=== PATIENT | male | born 1980 | race Two or more races ===

== ENCOUNTER 2021-01-16 15:31 | Inpatient (IN) | payer MEDICAID ==
[~2021-01-16] VITALS: Ht 162.6 cm; Wt 71.7 kg
[2021-01-16 15:56] LABS: EOSINOPHILS % (AUTO) 0.1 % (0.0-6.0); HEMOGLOBIN 12.1 g/dL (13.5-17.5); LYMPHOCYTES # (AUTO) 0.8 /CMM (0.8-4.8)
[2021-01-16 15:58] LABS: BASOPHILS % (AUTO) 0.5 % (0.0-2.0); HEMATOCRIT 34 % (39-51); LYMPHOCYTES % (AUTO) 8.1 % (20.0-44.0); MEAN CORPUSCULAR HGB CONC 35 g/dl (31.0-36.0); MEAN CORPUSCULAR VOLUME 89 fL (80-96); MONOCYTES # (AUTO) 0.9 /CMM (0.1-1.30); MONOCYTES % (AUTO) 9.6 % (2.0-12.0); NEUTROPHILS % (AUTO) 81.7 % (43.0-81.0); PLATELET COUNT (AUTO) 57 /CMM (150-450); RED BLOOD CELL COUNT(AUTO) 3.86 MIL/uL (4.5-6.0); WHITE BLOOD COUNT (AUTO) 9.8 K/uL (4.3-11.0)
[2021-01-16 16:10] LABS: ACETAMINOPHEN < 10 ug/ml (10-30); ALANINE AMINOTRANSFERASE 144 U/L (12-78); ALBUMIN 2.9 g/dL (3.4-5.0); ALCOHOL, BLOOD 546 mg/dL (0-0); ALKALINE PHOSPHATASE 160 U/L (46-116); ASPARTATE AMINOTRANSFERASE 327 U/L (15-37); BILIRUBIN,DIRECT 0.7 mg/dL (0.0-0.2); BILIRUBIN,TOTAL 1.3 mg/dL (0.2-1.0); CALCIUM, SERUM 7.4 mg/dL (8.5-10.1); CARBON DIOXIDE 21 mmol/L (21-32); CHLORIDE 90 mmol/L (98-107); GLUCOSE 158 mg/dL (74-106); POTASSIUM 3.4 mmol/L (3.5-5.1); SODIUM SERUM 130 mmol/L (136-145); UREA NITROGEN, BLOOD 13 mg/dL (7-18)
[2021-01-16 17:00] LABS: BAND % (MANUAL) 5 % (0.0-5.0); LYMPHOCYTES % (MANUAL) 8 % (16-48); MONOCYTES % (MANUAL) 7 % (0-11.0); NEUTROPHILS % (MANUAL) 80 (42-76)
[2021-01-16] MEDS ORDERED: POTASSIUM CL. PREMIX PERIPHER. 100 ML ONE (17:29)
[2021-01-16] MEDS ORDERED: LEVETIRACETAM (500MG) 500 MG in IV NS 0.9% 100 ML IV SCH (17:30)
[2021-01-16] MEDS ORDERED: IV NS 0.9% 250 ML IV ONE ×2 (17:37→19:39)
[2021-01-16] MEDS ORDERED: IOHEXOL-350 100 ML VIAL IV ONE (17:37)
[2021-01-16] MEDS: POTASSIUM CL. PREMIX PERIPHER. 50 ML IV SCH ×2 (17:38→18:45)
[2021-01-16] MEDS ORDERED: IOHEXOL-300 100 ML VIAL IV ONE (19:39)
[2021-01-16 21:23] VITALS: BP 106/57
[2021-01-16 21:30] VITALS: BP 106/57
[2021-01-16] MEDS ORDERED: IV NS 0.9% 1,000 ML IV ONE ×2 (21:30)
[2021-01-16] MEDS ORDERED: MAGNESIUM HYDROXIDE 30 ML UDC PO PRN (21:30)
[2021-01-16] MEDS ORDERED: MORPHINE SULFATE INJ 2 MG/ML DISP.SYRIN IV PRN (21:30)
[2021-01-16 22:00] VITALS: BP 115/65
[2021-01-16 23:00] VITALS: BP 102/54
[2021-01-17] VITALS (26 sets, daily range): BP systolic 88–141; BP diastolic 43–77
[2021-01-17] MEDS: IV NS 0.9% 1,000 ML IV PRN ×2 (00:13→10:25)
[2021-01-17] MEDS: ONDANSETRON HCL/PF 4 MG/2 ML VIAL IVP PRN ×2 (01:04→10:53)
[2021-01-17] MEDS: MAG HYDROX/AL HYDROX/SIMETH 30 ML UDC PO PRN ×2 (04:46→13:32)
[2021-01-17 04:59] LABS: BASOPHILS % (AUTO) 0.5 % (0.0-2.0); EOSINOPHILS % (AUTO) 0.2 % (0.0-6.0); HEMATOCRIT 29 % (39-51); LYMPHOCYTES # (AUTO) 0.7 /CMM (0.8-4.8); LYMPHOCYTES % (AUTO) 9.3 % (20.0-44.0); MEAN CORPUSCULAR HGB CONC 34 g/dl (31.0-36.0); MEAN CORPUSCULAR VOLUME 91 fL (80-96); MONOCYTES # (AUTO) 0.7 /CMM (0.1-1.30); MONOCYTES % (AUTO) 9.1 % (2.0-12.0); NEUTROPHILS # (AUTO) 5.9 /CMM (1.8-8.9); NEUTROPHILS % (AUTO) 80.9 % (43.0-81.0); RED BLOOD CELL COUNT(AUTO) 3.19 MIL/uL (4.5-6.0); WHITE BLOOD COUNT (AUTO) 7.3 K/uL (4.3-11.0)
[2021-01-17 05:00] LABS: PLATELET COUNT (AUTO) 34 /CMM (150-450)
[2021-01-17 05:26] LABS: ALBUMIN 2.4 g/dL (3.4-5.0); BILIRUBIN,DIRECT 0.4 mg/dL (0.0-0.2); BILIRUBIN,TOTAL 0.9 mg/dL (0.2-1.0); CALCIUM, SERUM 7.3 mg/dL (8.5-10.1); CREATININE 0.6 mg/dL (0.6-1.3); MAGNESIUM 1.6 mg/dL (1.8-2.4); POTASSIUM 3.2 mmol/L (3.5-5.1); TOTAL PROTEIN, SERUM 5.1 g/dL (6.4-8.2)
[2021-01-17] MEDS: LORAZEPAM INJ 2 MG/ML VIAL IV PRN ×2 (05:51→17:13)
[2021-01-17] MEDS ORDERED: METOCLOPRAMIDE HCL 10 MG/2 ML VIAL IV SCH (06:00)
[2021-01-17] MEDS ORDERED: PANTOPRAZOLE 40 MG VIAL IV SCH (06:00)
[2021-01-17] MEDS ORDERED: LEVETIRACETAM (500MG) 500 MG/5 ML VIAL IV ONE (06:08)
[2021-01-17] MEDS: LEVETIRACETAM (500MG) 500 MG in IV NS 0.9% 100 ML IV SCH ×2 (06:14→17:13)
[2021-01-17 08:19] LABS: BAND % (MANUAL) 3 % (0.0-5.0); EOSINOPHILS % (MANUAL) 1 % (0-4); LYMPHOCYTES % (MANUAL) 6 % (16-48); MONOCYTES % (MANUAL) 5 % (0-11.0); NEUTROPHILS % (MANUAL) 85 (42-76)
[2021-01-17 08:28] LABS: ALCOHOL, BLOOD 254 mg/dL (0-0)
[2021-01-17 08:51] LABS: CREATINE KINASE, TOTAL 1141 U/L (39-308)
[2021-01-17] MEDS: Magnesium 1GM/D5W 100ML PREMIX 100 ML IV SCH ×2 (11:40→12:42)
[2021-01-17] MEDS: POTASSIUM CHLORIDE 20 MEQ TAB.PRT.SR PO SCH ×2 (11:41→12:42)
[2021-01-18] VITALS (15 sets, daily range): BP systolic 114–139; BP diastolic 59–82
[2021-01-18] MEDS: LORAZEPAM INJ 2 MG/ML VIAL IV PRN ×3 (00:22→19:24)
[2021-01-18 04:47] LABS: CREATININE 0.6 mg/dL (0.6-1.3); MAGNESIUM 2.1 mg/dL (1.8-2.4); POTASSIUM 2.9 mmol/L (3.5-5.1)
[2021-01-18] MEDS: IV NS 0.9% 1,000 ML IV PRN ×2 (04:56→15:18)
[2021-01-18] MEDS: LEVETIRACETAM (500MG) 500 MG in IV NS 0.9% 100 ML IV SCH ×2 (05:54→19:35)
[2021-01-18] MEDS ORDERED: POTASSIUM CHLORIDE 20 MEQ TAB.PRT.SR PO ONE (08:00)
[2021-01-18] MEDS: POTASSIUM CL. PREMIX PERIPHER. 50 ML IV SCH ×4 (08:01→10:43)
[2021-01-18] MEDS: FAMOTIDINE (20 MG) 20 MG TABLET PO SCH (09:33)
[2021-01-18] MEDS: ACETAMINOPHEN 325 MG TABLET PO PRN (11:12)
[2021-01-18] MEDS ORDERED: DILTIAZEM HCL 50 MG IV IV PRN (18:00)
[2021-01-18] MEDS ORDERED: DILTIAZEM HCL 25 MG IV IV PRN (18:30)
[2021-01-18] MEDS ORDERED: DILTIAZEM HCL 25 MG IV IV ONE (21:00)
[2021-01-19] VITALS: BP 111/69
[2021-01-19] MEDS: LORAZEPAM INJ 2 MG/ML VIAL IV PRN ×2 (00:05→08:46)
[2021-01-19] MEDS: IV NS 0.9% 1,000 ML IV PRN ×2 (03:59→18:57)
[2021-01-19 04:00] VITALS: BP 110/66
[2021-01-19] MEDS: ACETAMINOPHEN 325 MG TABLET PO PRN ×3 (04:07→20:13)
[2021-01-19 06:38] LABS: BASOPHILS % (AUTO) 0.2 % (0.0-2.0); EOSINOPHILS % (AUTO) 0.4 % (0.0-6.0); HEMATOCRIT 28 % (39-51); HEMOGLOBIN 9.8 g/dL (13.5-17.5); LYMPHOCYTES # (AUTO) 0.3 /CMM (0.8-4.8); LYMPHOCYTES % (AUTO) 3.5 % (20.0-44.0); MEAN CORPUSCULAR HGB CONC 35 g/dl (31.0-36.0); MEAN CORPUSCULAR VOLUME 91 fL (80-96); MONOCYTES # (AUTO) 0.4 /CMM (0.1-1.30); NEUTROPHILS # (AUTO) 7.9 /CMM (1.8-8.9); NEUTROPHILS % (AUTO) 90.9 % (43.0-81.0); RED BLOOD CELL COUNT(AUTO) 3.07 MIL/uL (4.5-6.0); WHITE BLOOD COUNT (AUTO) 8.7 K/uL (4.3-11.0)
[2021-01-19 06:49] LABS: PLATELET COUNT (AUTO) 43 /CMM (150-450)
[2021-01-19 07:20] LABS: ALBUMIN 2.6 g/dL (3.4-5.0); BILIRUBIN,DIRECT 0.3 mg/dL (0.0-0.2); BILIRUBIN,TOTAL 1.1 mg/dL (0.2-1.0); CALCIUM, SERUM 8.7 mg/dL (8.5-10.1); CREATININE 0.5 mg/dL (0.6-1.3); MAGNESIUM 1.5 mg/dL (1.8-2.4); POTASSIUM 3.2 mmol/L (3.5-5.1); TOTAL PROTEIN, SERUM 5.6 g/dL (6.4-8.2)
[2021-01-19 08:00] VITALS: BP 111/73
[2021-01-19] MEDS: LEVETIRACETAM (500MG) 500 MG in IV NS 0.9% 100 ML IV SCH ×2 (08:42→20:13)
[2021-01-19] MEDS: FAMOTIDINE (20 MG) 20 MG TABLET PO SCH (08:42)
[2021-01-19] MEDS ORDERED: NEUTRA PHOS 1 POWD.PACKET PO ONE (10:30)
[2021-01-19] MEDS: Magnesium 1GM/D5W 100ML PREMIX 100 ML IV SCH ×2 (11:12→12:06)
[2021-01-19 12:00] VITALS: BP 110/64
[2021-01-19] MEDS: POTASSIUM CHLORIDE 20 MEQ TAB.PRT.SR PO SCH (12:21)
[2021-01-19 16:00] VITALS: BP 108/67
[2021-01-19 20:00] VITALS: BP 127/52
[2021-01-20] VITALS: BP 114/61
[2021-01-20] MEDS: DILTIAZEM HCL 25 MG IV IV PRN ×3 (00:33→21:28)
[2021-01-20] MEDS: ONDANSETRON HCL/PF 4 MG/2 ML VIAL IVP PRN (02:57)
[2021-01-20 04:00] VITALS: BP 140/71
[2021-01-20] MEDS: ACETAMINOPHEN 325 MG TABLET PO PRN ×4 (04:14→21:21)
[2021-01-20] MEDS ORDERED: CEFTRIAXONE 1 G VIAL ONE (04:34)
[2021-01-20] MEDS: IV NS 0.9% 1,000 ML IV PRN (04:40)
[2021-01-20] MEDS: CEFTRIAXONE 1 G in IV D5W 50 ML IV SCH (04:40)
[2021-01-20 06:50] LABS: CREATININE 0.6 mg/dL (0.6-1.3); MAGNESIUM 1.7 mg/dL (1.8-2.4); PHOSPHORUS 2.5 mg/dL (2.5-4.9); POTASSIUM 3.4 mmol/L (3.5-5.1)
[2021-01-20 07:15] LABS: BASOPHILS % (AUTO) 0.2 % (0.0-2.0); EOSINOPHILS % (AUTO) 0.1 % (0.0-6.0); HEMATOCRIT 30 % (39-51); HEMOGLOBIN 10.3 g/dL (13.5-17.5); LYMPHOCYTES # (AUTO) 0.4 /CMM (0.8-4.8); LYMPHOCYTES % (AUTO) 4.2 % (20.0-44.0); MEAN CORPUSCULAR HGB CONC 34 g/dl (31.0-36.0); MEAN CORPUSCULAR VOLUME 93 fL (80-96); MONOCYTES # (AUTO) 0.8 /CMM (0.1-1.30); MONOCYTES % (AUTO) 8.7 % (2.0-12.0); NEUTROPHILS # (AUTO) 8.4 /CMM (1.8-8.9); NEUTROPHILS % (AUTO) 86.8 % (43.0-81.0); PLATELET COUNT (AUTO) 68 /CMM (150-450); RED BLOOD CELL COUNT(AUTO) 3.28 MIL/uL (4.5-6.0); WHITE BLOOD COUNT (AUTO) 9.6 K/uL (4.3-11.0)
[2021-01-20] MEDS: LEVETIRACETAM (500MG) 500 MG in IV NS 0.9% 100 ML IV SCH (08:21)
[2021-01-20] MEDS: FAMOTIDINE (20 MG) 20 MG TABLET PO SCH (08:21)
[2021-01-20 08:45] VITALS: BP 110/70
[2021-01-20] MEDS ORDERED: VANCOMYCIN 1.25 GM in IV D5W 250 ML IV ONE (09:00)
[2021-01-20] MEDS: Magnesium 1GM/D5W 100ML PREMIX 100 ML IV SCH ×2 (10:24→11:40)
[2021-01-20] MEDS ORDERED: POTASSIUM CHLORIDE 20 MEQ TAB.PRT.SR PO SCH (10:30)
[2021-01-20] MEDS: LORAZEPAM INJ 2 MG/ML VIAL IV PRN ×3 (11:40→22:38)
[2021-01-20 13:14] VITALS: BP 98/59
[2021-01-20] MEDS: VANCOMYCIN 1 GM in IV D5W 250 ML IV SCH (16:07)
[2021-01-20 17:35] VITALS: BP 102/64
[2021-01-20 20:00] VITALS: BP 101/63
[2021-01-20] MEDS: LEVETIRACETAM (250 MG) 250 MG TABLET PO SCH (20:16)
[2021-01-20] MEDS: CHLORDIAZEPOXIDE HCL 25 MG CAPSULE PO SCH (22:38)
[2021-01-21] VITALS: BP 97/54
[2021-01-21] MEDS ORDERED: IV NS 0.9% 500 ML IV ONE ×2 (01:00→03:00)
[2021-01-21] MEDS: VANCOMYCIN 1 GM in IV D5W 250 ML IV SCH ×2 (01:42→09:23)
[2021-01-21] MEDS: IV NS 0.9% 1,000 ML IV PRN ×3 (03:51→21:34)
[2021-01-21 04:00] VITALS: BP 95/56
[2021-01-21] MEDS: CEFTRIAXONE 1 G in IV D5W 50 ML IV SCH (04:34)
[2021-01-21] MEDS: ACETAMINOPHEN 325 MG TABLET PO PRN ×3 (04:39→18:55)
[2021-01-21] MEDS: LORAZEPAM INJ 2 MG/ML VIAL IV PRN ×2 (04:39→09:44)
[2021-01-21 06:49] LABS: BASOPHILS % (AUTO) 0.4 % (0.0-2.0); EOSINOPHILS % (AUTO) 0.3 % (0.0-6.0); HEMATOCRIT 29 % (39-51); HEMOGLOBIN 9.4 g/dL (13.5-17.5); LYMPHOCYTES # (AUTO) 0.4 /CMM (0.8-4.8); LYMPHOCYTES % (AUTO) 5.9 % (20.0-44.0); MEAN CORPUSCULAR HGB CONC 33 g/dl (31.0-36.0); MEAN CORPUSCULAR VOLUME 98 fL (80-96); MONOCYTES # (AUTO) 1.3 /CMM (0.1-1.30); MONOCYTES % (AUTO) 22.3 % (2.0-12.0); NEUTROPHILS # (AUTO) 4.2 /CMM (1.8-8.9); NEUTROPHILS % (AUTO) 71.1 % (43.0-81.0); PLATELET COUNT (AUTO) 77 /CMM (150-450); RED BLOOD CELL COUNT(AUTO) 2.95 MIL/uL (4.5-6.0)
[2021-01-21 07:42] LABS: CALCIUM, SERUM 7.9 mg/dL (8.5-10.1); CREATININE 0.7 mg/dL (0.6-1.3); POTASSIUM 3.3 mmol/L (3.5-5.1)
[2021-01-21 08:00] VITALS: BP 93/56
[2021-01-21 08:18] LABS: BAND % (MANUAL) 6 % (0.0-5.0); LYMPHOCYTES % (MANUAL) 5 % (16-48); MONOCYTES % (MANUAL) 13 % (0-11.0); MYELOCYTES % 1 % (0-0); NEUTROPHILS % (MANUAL) 75 (42-76)
[2021-01-21] MEDS: LEVETIRACETAM (250 MG) 250 MG TABLET PO SCH ×2 (08:32→21:34)
[2021-01-21] MEDS: CHLORDIAZEPOXIDE HCL 25 MG CAPSULE PO SCH ×3 (08:32→16:48)
[2021-01-21] MEDS: FAMOTIDINE (20 MG) 20 MG TABLET PO SCH (08:32)
[2021-01-21] MEDS ORDERED: POTASSIUM CHLORIDE 20 MEQ TAB.PRT.SR PO SCH (11:00)
[2021-01-21 12:00] VITALS: BP 104/58
[2021-01-21 16:00] VITALS: BP 99/63
[2021-01-21] MEDS: VANCOMYCIN HCL 1.25 GM in IV D5W 250 ML IV SCH (16:47)
[2021-01-21] MEDS: DILTIAZEM HCL 25 MG IV IV PRN (19:47)
[2021-01-21 20:00] VITALS: BP 92/50
[2021-01-21] MEDS: HYDROCODONE/APAP 5/325MG TABLET PO PRN (21:34)
[2021-01-22] VITALS: BP 105/76
[2021-01-22] MEDS: VANCOMYCIN HCL 1.25 GM in IV D5W 250 ML IV SCH ×2 (00:53→10:23)
[2021-01-22 04:00] VITALS: BP 118/70
[2021-01-22] MEDS: CEFTRIAXONE 1 G in IV D5W 50 ML IV SCH (04:31)
[2021-01-22 07:44] LABS: CALCIUM, SERUM 6.7 mg/dL (8.5-10.1); CREATININE 0.9 mg/dL (0.6-1.3)
[2021-01-22 07:52] LABS: POTASSIUM 2.8 mmol/L (3.5-5.1)
[2021-01-22 08:00] VITALS: BP 113/67
[2021-01-22] MEDS: CHLORDIAZEPOXIDE HCL 25 MG CAPSULE PO SCH ×3 (09:24→16:45)
[2021-01-22] MEDS: LEVETIRACETAM (250 MG) 250 MG TABLET PO SCH ×2 (09:25→20:29)
[2021-01-22] MEDS: FAMOTIDINE (20 MG) 20 MG TABLET PO SCH (09:25)
[2021-01-22] MEDS ORDERED: FUROSEMIDE 20 MG/2 ML VIAL IV ONE (11:00)
[2021-01-22 12:00] VITALS: BP 107/71
[2021-01-22] MEDS: POTASSIUM CHLORIDE 20 MEQ TAB.PRT.SR PO SCH ×2 (12:47→13:28)
[2021-01-22 16:00] VITALS: BP 100/57
[2021-01-22] MEDS: ACETAMINOPHEN 325 MG TABLET PO PRN (16:43)
[2021-01-22 20:00] VITALS: BP 101/59
[2021-01-22] MEDS: HYDROCODONE/APAP 5/325MG TABLET PO PRN (20:30)
[2021-01-22] MEDS: VANCOMYCIN 1 GM in IV D5W 250ml IV SCH (21:18)
[2021-01-22] MEDS: DILTIAZEM HCL 25 MG IV IV PRN (21:25)
[2021-01-23] VITALS: BP 90/54
[2021-01-23] MEDS: ACETAMINOPHEN 325 MG TABLET PO PRN ×2 (02:02→17:31)
[2021-01-23 04:00] VITALS: BP 90/50
[2021-01-23] MEDS: CEFTRIAXONE 1 G in IV D5W 50 ML IV SCH (04:21)
[2021-01-23] MEDS: VANCOMYCIN 1 GM in IV D5W 250ml IV SCH ×2 (05:02→13:51)
[2021-01-23 06:27] LABS: BASOPHILS % (AUTO) 0.6 % (0.0-2.0); EOSINOPHILS % (AUTO) 1.1 % (0.0-6.0); HEMATOCRIT 23 % (39-51); HEMOGLOBIN 7.7 g/dL (13.5-17.5); LYMPHOCYTES # (AUTO) 0.8 /CMM (0.8-4.8); LYMPHOCYTES % (AUTO) 9.6 % (20.0-44.0); MEAN CORPUSCULAR HGB CONC 34 g/dl (31.0-36.0); MEAN CORPUSCULAR VOLUME 94 fL (80-96); MONOCYTES # (AUTO) 1.7 /CMM (0.1-1.30); MONOCYTES % (AUTO) 20.9 % (2.0-12.0); NEUTROPHILS # (AUTO) 5.6 /CMM (1.8-8.9); NEUTROPHILS % (AUTO) 67.8 % (43.0-81.0); PLATELET COUNT (AUTO) 170 /CMM (150-450); RED BLOOD CELL COUNT(AUTO) 2.41 MIL/uL (4.5-6.0); WHITE BLOOD COUNT (AUTO) 8.2 K/uL (4.3-11.0)
[2021-01-23 07:50] LABS: CREATININE 1.5 mg/dL (0.6-1.3); MAGNESIUM 1.9 mg/dL (1.8-2.4); PHOSPHORUS 3.1 mg/dL (2.5-4.9); POTASSIUM 3.8 mmol/L (3.5-5.1)
[2021-01-23 08:00] VITALS: BP 95/61
[2021-01-23] MEDS: FAMOTIDINE (20 MG) 20 MG TABLET PO SCH (08:16)
[2021-01-23] MEDS: CHLORDIAZEPOXIDE HCL 25 MG CAPSULE PO SCH ×3 (08:16→16:09)
[2021-01-23] MEDS: LEVETIRACETAM (250 MG) 250 MG TABLET PO SCH ×2 (08:16→21:50)
[2021-01-23 11:27] LABS: BAND % (MANUAL) 14 % (0.0-5.0); LYMPHOCYTES % (MANUAL) 4 % (16-48); METAMYELOCYTES % 1 % (0-0); MONOCYTES % (MANUAL) 18 % (0-11.0); MYELOCYTES % 1 % (0-0); NEUTROPHILS % (MANUAL) 62 (42-76)
[2021-01-23 12:00] VITALS: BP 97/57
[2021-01-23 16:00] VITALS: BP 97/59
[2021-01-23 20:00] VITALS: BP 97/59
[2021-01-23] MEDS: HYDROCODONE/APAP 5/325MG TABLET PO PRN (21:54)
[2021-01-24] VITALS: BP 96/61
[2021-01-24 04:00] VITALS: BP 99/63
[2021-01-24] MEDS: CEFTRIAXONE 1 G in IV D5W 50 ML IV SCH (04:30)
[2021-01-24] MEDS: HYDROCODONE/APAP 5/325MG TABLET PO PRN ×2 (05:29→20:11)
[2021-01-24 07:37] LABS: CALCIUM, SERUM 8.1 mg/dL (8.5-10.1); POTASSIUM 3.7 mmol/L (3.5-5.1)
[2021-01-24 08:00] VITALS: BP 93/52
[2021-01-24] MEDS: FAMOTIDINE (20 MG) 20 MG TABLET PO SCH (08:10)
[2021-01-24] MEDS: CHLORDIAZEPOXIDE HCL 25 MG CAPSULE PO SCH ×3 (08:11→16:12)
[2021-01-24] MEDS: LEVETIRACETAM (250 MG) 250 MG TABLET PO SCH ×2 (08:11→20:11)
[2021-01-24] MEDS: VANCOMYCIN 1 GM in IV D5W 250 ML IV SCH (08:36)
[2021-01-24] MEDS: ACETAMINOPHEN 325 MG TABLET PO PRN (15:32)
[2021-01-24 16:00] VITALS: BP 97/52
[2021-01-24 20:00] VITALS: BP 102/57
[2021-01-25] VITALS: BP 102/57
[2021-01-25 04:00] VITALS: BP 107/62
[2021-01-25 06:58] LABS: CALCIUM, SERUM 8.4 mg/dL (8.5-10.1); POTASSIUM 3.6 mmol/L (3.5-5.1)
[2021-01-25] MEDS: VANCOMYCIN 1 GM in IV D5W 250 ML IV SCH (07:54)
[2021-01-25] MEDS: FAMOTIDINE (20 MG) 20 MG TABLET PO SCH (08:02)
[2021-01-25] MEDS: LEVETIRACETAM (250 MG) 250 MG TABLET PO SCH ×2 (08:02→20:19)
[2021-01-25] MEDS: CHLORDIAZEPOXIDE HCL 25 MG CAPSULE PO SCH ×3 (08:02→16:55)
[2021-01-25 08:15] VITALS: BP 103/84
[2021-01-25 16:19] VITALS: BP 93/57
[2021-01-25] MEDS: HYDROCODONE/APAP 5/325MG TABLET PO PRN (19:30)
[2021-01-25 21:00] VITALS: BP 103/60
[2021-01-26] MEDS: VANCOMYCIN 1 GM in IV D5W 250 ML IV SCH ×2 (03:35→19:34)
[2021-01-26 06:25] LABS: BASOPHILS # (AUTO) 0.1 /CMM (0.0-0.2); BASOPHILS % (AUTO) 0.9 % (0.0-2.0); EOSINOPHILS % (AUTO) 1.6 % (0.0-6.0); HEMATOCRIT 25 % (39-51); HEMOGLOBIN 8.3 g/dL (13.5-17.5); LYMPHOCYTES # (AUTO) 1.3 /CMM (0.8-4.8); LYMPHOCYTES % (AUTO) 14.5 % (20.0-44.0); MEAN CORPUSCULAR HGB CONC 33 g/dl (31.0-36.0); MEAN CORPUSCULAR VOLUME 95 fL (80-96); MONOCYTES # (AUTO) 1.3 /CMM (0.1-1.30); MONOCYTES % (AUTO) 14.2 % (2.0-12.0); NEUTROPHILS # (AUTO) 6.1 /CMM (1.8-8.9); NEUTROPHILS % (AUTO) 68.8 % (43.0-81.0); PLATELET COUNT (AUTO) 477 /CMM (150-450); RED BLOOD CELL COUNT(AUTO) 2.68 MIL/uL (4.5-6.0); WHITE BLOOD COUNT (AUTO) 8.9 K/uL (4.3-11.0)
[2021-01-26 07:04] LABS: CALCIUM, SERUM 8.6 mg/dL (8.5-10.1); CREATININE 1.1 mg/dL (0.6-1.3); MAGNESIUM 1.9 mg/dL (1.8-2.4); PHOSPHORUS 3.7 mg/dL (2.5-4.9); POTASSIUM 3.5 mmol/L (3.5-5.1)
[2021-01-26 09:00] VITALS: BP 100/64
[2021-01-26] MEDS: LEVETIRACETAM (250 MG) 250 MG TABLET PO SCH ×2 (09:50→20:31)
[2021-01-26] MEDS: CHLORDIAZEPOXIDE HCL 25 MG CAPSULE PO SCH ×3 (09:50→18:32)
[2021-01-26] MEDS: FAMOTIDINE (20 MG) 20 MG TABLET PO SCH (09:50)
[2021-01-26 10:13] LABS: BAND % (MANUAL) 2 % (0.0-5.0); LYMPHOCYTES % (MANUAL) 21 % (16-48); MONOCYTES % (MANUAL) 11 % (0-11.0); MYELOCYTES % 3 % (0-0); NEUTROPHILS % (MANUAL) 63 (42-76)
[2021-01-26] MEDS: HYDROCODONE/APAP 5/325MG TABLET PO PRN ×2 (11:21→20:32)
[2021-01-26 20:00] VITALS: BP 91/52
[2021-01-27 04:00] VITALS: BP 103/55
[2021-01-27] MEDS: HYDROCODONE/APAP 5/325MG TABLET PO PRN (05:31)
[2021-01-27 06:31] LABS: CALCIUM, SERUM 8.6 mg/dL (8.5-10.1); CREATININE 1.1 mg/dL (0.6-1.3); POTASSIUM 3.7 mmol/L (3.5-5.1)
[2021-01-27 08:00] VITALS: BP 94/58
[2021-01-27 08:25] VITALS: BP 94/58
[2021-01-27] MEDS: LEVETIRACETAM (250 MG) 250 MG TABLET PO SCH ×2 (08:54→20:11)
[2021-01-27] MEDS: FAMOTIDINE (20 MG) 20 MG TABLET PO SCH (08:54)
[2021-01-27] MEDS: CHLORDIAZEPOXIDE HCL 25 MG CAPSULE PO SCH ×3 (08:54→16:43)
[2021-01-27] MEDS: VANCOMYCIN 1 GM in IV D5W 250 ML IV SCH (16:10)
[2021-01-27 20:00] VITALS: BP 99/56
[2021-01-28 04:00] VITALS: BP 97/57
[2021-01-28 06:21] LABS: BASOPHILS # (AUTO) 0.1 /CMM (0.0-0.2); BASOPHILS % (AUTO) 0.8 % (0.0-2.0); EOSINOPHILS % (AUTO) 1.3 % (0.0-6.0); HEMATOCRIT 24 % (39-51); HEMOGLOBIN 8.1 g/dL (13.5-17.5); LYMPHOCYTES # (AUTO) 1.3 /CMM (0.8-4.8); LYMPHOCYTES % (AUTO) 14.2 % (20.0-44.0); MEAN CORPUSCULAR HGB CONC 33 g/dl (31.0-36.0); MEAN CORPUSCULAR VOLUME 95 fL (80-96); MONOCYTES % (AUTO) 11.3 % (2.0-12.0); NEUTROPHILS # (AUTO) 6.5 /CMM (1.8-8.9); NEUTROPHILS % (AUTO) 72.4 % (43.0-81.0); PLATELET COUNT (AUTO) 527 /CMM (150-450); RED BLOOD CELL COUNT(AUTO) 2.56 MIL/uL (4.5-6.0)
[2021-01-28 06:42] LABS: CALCIUM, SERUM 8.3 mg/dL (8.5-10.1); CREATININE 1.1 mg/dL (0.6-1.3); POTASSIUM 3.7 mmol/L (3.5-5.1)
[2021-01-28] MEDS: VANCOMYCIN 1 GM in IV D5W 250 ML IV SCH (07:01)
[2021-01-28 08:00] VITALS: BP 99/51
[2021-01-28] MEDS: FAMOTIDINE (20 MG) 20 MG TABLET PO SCH (08:13)
[2021-01-28] MEDS: LEVETIRACETAM (250 MG) 250 MG TABLET PO SCH ×2 (08:13→20:06)
[2021-01-28] MEDS: CHLORDIAZEPOXIDE HCL 25 MG CAPSULE PO SCH ×3 (08:14→17:06)
[2021-01-28] MEDS: HYDROCODONE/APAP 5/325MG TABLET PO PRN (08:15)
[2021-01-28 16:00] VITALS: BP 90/50
[2021-01-28 20:00] VITALS: BP 99/53
[2021-01-28] MEDS ORDERED: VANCOMYCIN 1 GM in IV D5W 250 ML IV SCH (20:00)
[2021-01-28] MEDS: VANCOMYCIN 0.75 GM in IV D5W 250 ML IV SCH (20:07)
[2021-01-29 04:00] VITALS: BP 90/54
[2021-01-29 06:27] LABS: CALCIUM, SERUM 8.9 mg/dL (8.5-10.1); CREATININE 1.1 mg/dL (0.6-1.3); POTASSIUM 3.6 mmol/L (3.5-5.1)
[2021-01-29 08:00] VITALS: BP 90/52
[2021-01-29] MEDS: LEVETIRACETAM (250 MG) 250 MG TABLET PO SCH (08:35)
[2021-01-29] MEDS: CHLORDIAZEPOXIDE HCL 25 MG CAPSULE PO SCH (08:35)
[2021-01-29] MEDS: VANCOMYCIN 0.75 GM in IV D5W 250 ML IV SCH (08:35)
[2021-01-29] MEDS: FAMOTIDINE (20 MG) 20 MG TABLET PO SCH (08:35)
[2021-01-29] MEDS ORDERED: RXVAN XX (08:51)
[2021-01-29] MEDS ORDERED: LEVE250T2 PO (08:51)
[2021-01-29] MEDS ORDERED: LORA-259 PO (08:51)
[2021-01-29] MEDS ORDERED: CHLORDIAZEPOXIDE HCL 5 MG CAPSULE PO SCH (13:00)
[2021-01-29 16:00] VITALS: BP 98/52
== END 2021-01-29 16:17 | DRG 55 ==
LOC: ER 15:35 → EDBD 20:15 → ICU 20:15 → TELE1 01-18 11:47 → MEDSG1 01-24 08:07
PROVIDERS: ADMIT Nurse Practitioner Family; ATTEND Internal Medicine
PROC: 05H533Z Insertion of Infusion Device into Right Subclavian Vein, Percutaneous Approach (ICD-10-PCS; principal; 2021-01-19)
PROC: B546ZZA Ultrasonography of Right Subclavian Vein, Guidance (ICD-10-PCS; 2021-01-19)
PROC: 02HV33Z Insertion of Infusion Device into Superior Vena Cava, Percutaneous Approach (ICD-10-PCS; 2021-01-27)
PROC: B548ZZA Ultrasonography of Superior Vena Cava, Guidance (ICD-10-PCS; 2021-01-27)
DX: S06.6X0A Traumatic subarachnoid hemorrhage without loss of consciousness, initial encounter (principal); A41.02 Sepsis due to Methicillin resistant Staphylococcus aureus; I33.0 Acute and subacute infective endocarditis; G93.41 Metabolic encephalopathy; E44.1 Mild protein-calorie malnutrition; E87.1 Hypo-osmolality and hyponatremia; D69.59 Other secondary thrombocytopenia; E87.2 Acidosis; W18.30XA Fall on same level, unspecified, initial encounter; Y90.8 Blood alcohol level of 240 mg/100 ml or more; Y93.9 Activity, unspecified; Y92.89 Other specified places as the place of occurrence of the external cause; Z20.822 Contact with and (suspected) exposure to COVID-19; E87.6 Hypokalemia; D64.9 Anemia, unspecified; E88.09 Other disorders of plasma-protein metabolism, not elsewhere classified; R74.01 Elevation of levels of liver transaminase levels; F10.239 Alcohol dependence with withdrawal, unspecified; F10.229 Alcohol dependence with intoxication, unspecified; T14.8XXA Other injury of unspecified body region, initial encounter; R40.2132 Coma scale, eyes open, to sound, at arrival to emergency department; R40.2362 Coma scale, best motor response, obeys commands, at arrival to emergency department; R40.2252 Coma scale, best verbal response, oriented, at arrival to emergency department
CPT/HCPCS: 36410; 36415; 36569; 70450-TC; 70496-TC; 71045-TC; 71260-TC; 72125-TC; 73060-TC; 76700-TC; 80048-TC; 80061-TC; 80076-TC; 80202-TC; 82140-TC; 82550-TC; 82553; 83540-TC; 83735-TC; 84100-TC; 85025-TC; 87040-TC; 87081-TC; 93307-TC; 97116-TC; 97530-TC; A6253; C1751; C9113; G0378; G0480; J0696; J1940; J1953; J2060; J2270; J2405; J2765; J3370; J3475; J3480; J3490; J7030; J7040; J7050; J7060; Q9967